=== PATIENT | male | born 1990 | race Caucasian/White ===

== ENCOUNTER 2016-10-23 11:32 | Emergency (ER) | payer OTHER ==
[~2016-10-23] VITALS: Ht 185.4 cm; Wt 106.6 kg
--- NOTE | 2016-10-23 12:19 | PHYS DOC ---
Past Medical History Past Medical History: Depression, Other Additional Past Medical Histor: ADD Past Surgical History: Other Additional Past Surgical Histo: adenoids, muscle biopsy Alcohol Use: Occasionally Drug Use: None Adult General Chief Complaint Chief Complaint: FLU SYMPTOM HPI HPI Patient is a 25 year old male who presents with mild headache, body aches, weakness that started at 3 AM this morning. He states he went home from work at 4 AM to the Works nights felt exhausted and slept until he got up to come to the ER. Denies any nausea vomiting Stiffness or cough. Review of Systems Review of Systems Constitutional: Denies fever or chills [] Eyes: Denies change in visual acuity, redness, or eye pain [] HENT: Denies nasal congestion or sore throat [] Respiratory: Denies cough or shortness of breath [] Cardiovascular: No additional information not addressed in HPI [] GI: Denies abdominal pain, nausea, vomiting, bloody stools or diarrhea [] : Denies dysuria or hematuria [] Musculoskeletal: Denies back pain or joint pain, positive for body aches [] Integument: Denies rash or skin lesions [] Neurologic: Denies focal weakness or sensory changes positive for headache [] Endocrine: Denies polyuria or polydipsia [] Current Medications Current Medications Current Medications Medications (Trade) Dose Ordered Sig/Matti Start Time Stop Time Status Last Admin Dose Admin Acetaminophen (Tylenol) 1,000 mg 1X ONCE 10/23/16 13:15 10/23/16 13:16 Allergies Allergies Allergies Coded Allergies Type Severity Reaction Last Updated Verified No Known Drug Allergies 10/23/16 No Physical Exam Physical Exam Constitutional: Well developed, well nourished, no acute distress, non-toxic appearance. [] HENT: Normocephalic, atraumatic, bilateral external ears normal, oropharynx moist, no oral exudates, nose normal. [] Eyes: PERRLA, EOMI, conjunctiva normal, no discharge. [] Neck: Normal range of motion, no tenderness, supple, no stridor. [] Cardiovascular:Heart rate regular rhythm, no murmur [] Lungs & Thorax: Bilateral breath sounds clear to auscultation [] Abdomen: Bowel sounds normal, soft, no tenderness, no masses, no pulsatile masses. [] Skin: Warm, dry, no erythema, no rash. [] Back: No tenderness, no CVA tenderness. [] Extremities: No tenderness, no cyanosis, no clubbing, ROM intact, no edema. [] Neurologic: Alert and oriented X 3, normal motor function, normal sensory function, no focal deficits noted. [] Psychologic: Affect normal, judgement normal, mood normal. [] Current Patient Data Vital Signs Vital Signs Date Time Temp Pulse Resp B/P Pulse Ox O2 Delivery O2 Flow Rate FiO2 10/23/16 12:08 98.9 77 18 136/63 95 Room Air 98.9 Lab Values Laboratory Tests Test 10/23/16 12:30 Influenza Type A Antigen Negative (NEGATIVE) Influenza Type B Antigen Negative (NEGATIVE) EKG EKG [] Radiology/Procedures Radiology/Procedures [] Impressions: Viral syndrome Course & Med Decision Making Course & Med Decision Making Pertinent Labs and Imaging studies reviewed. (See chart for details) Influenza is negative, likely has a viral syndrome. He does not have any neck stiffness or other signs of meningitis, he does not have a fever. He is encouraged to push fluids and take [id number] medicines for pain control. He is return back to ER as any altered mental status, neck stiffness, decreased urine output or other concerns. Dragon Disclaimer Dragon Disclaimer This electronic medical record was generated, in whole or in part, using a voice recognition dictation system. Departure Departure Impression: Primary Impression: Viral syndrome Disposition: 01 HOME, SELF-CARE Condition: STABLE Referrals: RUSS ALEXANDRE (PCP) Patient Instructions: Viral Syndrome Additional Instructions: Your influenza was negative. You do not have a fever and your vitals are stable. Your arebeing discharged home and encouraged to push fluids and over-the -counter medicines for aches and pains. Return back to ER if you develop high fevers, neck stiffness, confusion or other concerns. ANDRES OCONNOR MD Oct 23, 2016 12:18
[2016-10-23 12:56] LABS: OBC FLU VALID
[2016-10-23 13:00] VITALS: BP 127/76
[2016-10-23] MEDS ORDERED: ACETAMINOPHEN 500 MG TABLET PO ONE (13:15)
== END 2016-10-23 13:16 | disposition home or self-care (01) ==
LOC: ER 11:34
DX: B34.9 Viral infection, unspecified (principal)
CPT/HCPCS: 87804; 99284